=== PATIENT | male | born 1970 | race Caucasian/White ===

== ENCOUNTER 2020-01-09 23:22 | Observation (INO) ==
[2020-01-09] MEDS ORDERED: 0.9 % Sodium Chloride 500 ML IVC ONE (23:47)
[2020-01-10 00:31] LABS: Basophils # 0.1 K/mcL (0.0-0.2); Basophils % 2.1 %; Eosinophils # 0.2 K/mcL (0.0-0.6); Eosinophils % 4.2 %; Hematocrit 38.1 % (37.5-50.1); Hemoglobin 13.3 g/dL (12.9-16.9); Immature Granulocytes % 1.6 % (0-4); Immature Platelets 4.4 % (1.1-6.1); Lymphocytes # 2.3 K/mcL (0.6-4.6); Lymphocytes % 39.9 %; Mean Corpuscular HGB Conc 34.9 g/dL (31.6-35.5); Mean Corpuscular Hemoglobin 37.3 pg (28.0-33.3); Mean Corpuscular Volume 106.7 fL (83.0-100.0); Mean Platelet Volume 9.4 fL (9.4-12.4); Monocytes # 0.6 K/mcL (0.0-1.3); Monocytes % 10.5 %; Neutrophils # 2.4 K/mcL (1.6-8.9); Red Blood Count 3.57 M/mcL (4.19-5.50); Red Cell Distribution Width 15.3 % (11.5-14.5); Segmented Neutrophils % 41.7 %; White Blood Count 5.7 K/mcL (4.3-11.1)
[2020-01-10 00:49] LABS: Alanine Aminotransferase 29 Units/L (7-52); Albumin 2.8 g/dL (3.5-5.7); Albumin/Globulin Ratio 0.8 (1.1-2.2); Alkaline Phosphatase 191 Units/L (34-104); Aspartate Amino Transferase 75 Units/L (13-39); BUN/Creatinine Ratio 4 (6-26); Bilirubin,Direct 5.3 mg/dL (0.0-0.2); Bilirubin,Indirect 7.2 mg/dL (0.0-1.0); Bilirubin,Total 12.5 mg/dL (0.3-1.0); Blood Urea Nitrogen 3 mg/dL (6-20); Calcium 8.1 mg/dL (8.6-10.3); Carbon Dioxide 26 mEq/L (23-29); Chloride 100 mEq/L (98-107); Globulin 3.7 g/dL (2.4-3.5); Glucose 119 mg/dL (70-105); Osmolality,Calculated 274 (280-300); Platelet Count 80 K/mcL (140-400); Potassium 3.1 mEq/L (3.5-5.1); Sodium 133 mEq/L (136-145); Total Protein 6.5 g/dL (6.4-8.9); eGFR For African Americans > 60 (> 60); eGFR For Non-African Americans > 60 (> 60)
[2020-01-10] MEDS ORDERED: Isovue-370 500 ML BOTTLE IVP ONE (00:57)
[2020-01-10] MEDS ORDERED: Potassium Chloride Elixir 20 MEQ/15 ML UDC PO ONE (00:57)
[2020-01-10 00:59] LABS: Bilirubin,Urine Negative (Negative); Blood,Urine Negative (Negative); Clarity,Urine Clear (Clear); Color,Urine Yellow (Yellow); Glucose,Urine (UA) Normal (Normal); Ketones,Urine Negative (Negative); Leukocyte Esterase,Urine Negative (Negative); Nitrite,Urine Negative (Negative); PH,Urine 6.5 pH Units (5.0-8.0); Protein,Urine Negative (Neg-Trace); Specific Gravity,Urine < 1.005 (1.010-1.025)
[2020-01-10] MEDS ORDERED: Furosemide 40 MG/4 ML VIAL IVP ONE (01:02)
[2020-01-10] MEDS: Nicotine 21 MG PATCH.TD24 TD SCH ×2 (01:10→11:34)
[2020-01-10 02:50] LABS: Activated Partial Thrombo Time 41.8 Seconds (26.0-36.0)
[2020-01-10 02:51] LABS: INR 2.2; Prothrombin Time 24.9 Seconds (9.4-12.1)
[2020-01-10] MEDS ORDERED: Lactulose Oral Soln 20 GM/30 ML UDC PO ONE (03:06)
[2020-01-10 03:09] LABS: Hepatitis B Surface Antigen Nonreactive (Nonreactive)
[2020-01-10 03:38] LABS: Hepatitis C Virus Antibody Nonreactive (Nonreactive)
[2020-01-10 03:40] LABS: Hepatitis A Antibody IgM Nonreactive (Nonreactive); Hepatitis B Core IgM Nonreactive (Nonreactive)
[2020-01-10] MEDS ORDERED: Naloxone 0.4 MG/ML INJ IVP PRN (08:42)
[2020-01-10] MEDS ORDERED: Ondansetron 4 MG/2 ML VIAL IVP PRN (08:42)
[2020-01-10] MEDS ORDERED: *HR* LORazepam 2 MG/ML VIAL IVP PRN ×3 (08:54)
[2020-01-10] MEDS ORDERED: Folic Acid 1 MG TABLET PO SCH (09:00)
[2020-01-10] MEDS ORDERED: Thiamine (B-1) 100 MG TABLET PO SCH (09:00)
[2020-01-10] MEDS: Lactulose Oral Soln 20 GM/30 ML UDC PO SCH ×2 (11:33→21:13)
[2020-01-10 18:51] VITALS: BP 146/68
== END 2020-01-10 21:45 | disposition short-term general hospital (02) ==
LOC: EMEROOARM 23:22 → 3ANU 23:22
PROVIDERS: ADMIT Internal Medicine; ATTEND Internal Medicine